=== PATIENT | female | born 1980 | race Caucasian/White ===

== ENCOUNTER 2017-01-30 05:19 | Day surgery (SDC) | payer BC ==
[2017-01-30] VITALS (10 sets, daily range): BP systolic 105–115; BP diastolic 59–70; PULSE 58–63; RESP 16–18; Ht 165.1 cm; Wt 59.2 kg
[~2017-01-30] VITALS: Ht 165.1 cm; Wt 59.2 kg
[2017-01-30] MEDS ORDERED: CEFAZOLIN 2 GM/50 ML (PMX) 50 ML IVPB SCH (07:00)
[2017-01-30] MEDS ORDERED: LACTATED RINGER'S 1,000 ML IV* SCH (07:00)
[2017-01-30] MEDS ORDERED: MEPERIDINE 100 MG INJ ONE (07:30)
[2017-01-30] MEDS ORDERED: LIDOCAINE 2% (SDV) 5 ML INJ ONE (07:30)
[2017-01-30] MEDS ORDERED: PROPOFOL 20 ML ONE (07:30)
--- NOTE | 2017-01-30 07:40 | RADRPT ---
PROCEDURE: XR Chest. CLINICAL INDICATION: Preoperative. TECHNIQUE: Single frontal view. COMPARISON: None. FINDINGS: The lungs are clear. The heart size is normal. There is no pleural effusion. There is no pneumothorax. IMPRESSION: 1. Normal chest radiograph. RPTAT: QQ .Mayank Austin MD, Date Time Electronically viewed and signed by .Mayank Austin MD, MD on 01/30/2017 07:39 .R/
[2017-01-30] MEDS ORDERED: METOCLOPRAMIDE 10 MG INJ ONE (07:55)
[2017-01-30] MEDS ORDERED: ONDANSETRON 4 MG INJ ONE (07:55)
[2017-01-30] MEDS ORDERED: CEFAZOLIN 1 GM INJ ONE (07:55)
[2017-01-30] MEDS ORDERED: KETOROLAC 30 MG INJ ONE (08:07)
[2017-01-30] MEDS ORDERED: FENTAnyl 50 MCG/ML VIAL IV PRN ×2 (08:30)
[2017-01-30] MEDS ORDERED: MIDAZOLAM 1 MG/ML 2 ML INJ IV PRN (08:30)
[2017-01-30] MEDS ORDERED: MEPERIDINE 25 MG INJ IV PRN (08:30)
[2017-01-30] MEDS ORDERED: DIPHENHYDRAMINE 50 MG INJ IV PRN (08:30)
[2017-01-30] MEDS ORDERED: HYDROmorphONE (0.2 MG/ML) 10ML SYG IV PRN ×2 (08:30)
[2017-01-30] MEDS ORDERED: METOCLOPRAMIDE 10 MG INJ IV PRN (08:30)
[2017-01-30] MEDS ORDERED: ONDANSETRON 4 MG INJ IV PRN (08:30)
--- NOTE | 2017-01-30 12:15 | OPR ---
DATE OF OPERATION: PREOPERATIVE DIAGNOSIS: Desires permanent sterilization by Essure hysteroscopic technique. POSTOPERATIVE DIAGNOSIS: Desires permanent sterilization by Essure hysteroscopic technique. OPERATION PERFORMED: Essure hysteroscopic tubal sterilization. SURGEON: Sammi Pineda MD ESTIMATED BLOOD LOSS: Minimal. COMPLICATIONS: None. FINDINGS: Normal endometrial cavity. No evidence of polyps or fibroids. CONSENT: Please see preoperative H and P consent done in my office. DESCRIPTION OF PROCEDURE: She was taken to the operating room and general anesthesia was induced. She was prepped and draped in the usual sterile fashion in dorsal lithotomy position. Patient was i dentified through a surgical time out, procedure was confirmed. Anterior lip of the cervix was gras ped using a single tooth tenaculum, the cervix was dilated. Bilateral tubal ostia very well visuali zed. The Essure implant was inserted in the right tube to the black line. It was wheeled back unti l a hard stop and then the gold line was visualized and the Essure implant was deployed. Three cord s were visualized. Same procedure was done on the contralateral side, 3 cords were visualized. All instruments removed. There was no bleeding from tenaculum site. The patient tolerated the procedu re well. Dictated By: SAMMI RESENDIZ/IVELISSE Conf#: [id number] DID#: [id number]
--- NOTE | 2017-02-01 08:15 | RADRPT ---
Vent Rate: 56 bpm RR Interval: 0 msec NV Interval: 146 msec QRS Duration: 84 msec QT Interval: 438 msec QTC Interval: 422 msec P-R-T [place]: 50 - 43 - 47 degrees Sinus bradycardia Otherwise normal ECG Electronically Signed By: Satnam Suarez [id number]
== END 2017-01-30 09:52 | disposition home or self-care (01) ==
LOC: SDS 05:19
PROVIDERS: ATTEND Specialist
DX: Z30.2 Encounter for sterilization (principal)
CPT/HCPCS: 58565; 71010; 93005; A4264; J0690; J1885; J2175; J2405; J2765; Z7512; Z7610